=== PATIENT | female | born 1940 | race Caucasian/White ===

== ENCOUNTER 2025-08-16 10:46 | Outpatient (CLI) | payer MEDICARE, SELFPAY ==
--- OUTSIDE RECORDS SUMMARY | 2025-08-16 11:19 | XMS_ITS | Clinical Summary ---
Author Organization [facility] Address [address] [place] [address] Phone Care Team Providers Care Plant Associate Name Role Phone Tex Duarte MD Primary Care Provider [phone] Allergies No known active allergies Medications Fexofenadine HCl (MIKAYLA PO) Take by mouth daily. Active LEVOTHYROXINE SODIUM PO Take 150 mcg by mouth daily. Two on Sundays, one every other day of the week Active folic acid (FOLVITE) 1 MG Tablet Take 1 mg by mouth daily. Active LOSARTAN POTASSIUM-HCTZ PO Take by mouth daily. Active celecoxib (CeleBREX) 100 MG Capsule Take 100 mg by mouth daily. Active PANTOPRAZOLE SODIUM PO Take 30 mg by mouth daily. Active VENLAFAXINE HCL PO Take by mouth daily. Active Multiple Vitamins-Mineral s (CENTRUM SILVER PO) Take by mouth daily. Active METHOTREXATE PO Take by mouth once a week. Active ASPIRIN PO Take 81 mg by mouth daily. Active VITAMIN D PO Take by mouth daily. Active oxybutynin (DITROPAN-XL) 10 MG TABLET SR 24 HR Take 10 mg by mouth daily. Active atorvastatin (LIPITOR) 10 MG Tablet Take 10 mg by mouth daily. Active AMLODIPINE BESYLATE PO Take 2.5 mg by mouth daily. Active TIZANIDINE HCL PO Take 6 mg by mouth daily. Active Mirabegron ER (Myrbetriq) 50 MG TABLET SR 24 HR Take by mouth daily. Active TRAMADOL HCL PO Take by mouth 2 times daily. Twice daily and PRN Active Active Problems Problem Noted Date Diagnosed Date Urge urinary incontinence 05/26/2025 Hypothyroidism due to acquired atrophy of thyroi d 05/26/2025 Hypertension, essential 05/26/2025 Mixed hyperlipidemia 05/26/2025 Gastroesophageal reflux disease without esophagi tis 05/26/2025 Chronic midline low back pain without sciatica 1 MCTD (mixed connective tissue disease) Arthritis Encounters Date Type Department Care Team Description 05/26/2025 3:15 PM CDT Office Visit [facility] [id number] [place] [address] Tex Duarte MD URI, acute (Primary Dx); Hypertension, essential; Mixed hyperlipidemia; Hypothyroidism due to acquired atrophy of thyroid; Urge urinary incontinence; Arthritis; Gastroesophageal reflux disease without esophagitis; MCTD (mixed connective tissue disease) Discharge Disposition: Discharged to home or Selfcare 05/26/2025 Travel 05/26/2025 Nurse Triage [facility] [address] [place] [id number] Provider, None Appointment; Cough; Sore Throat from Last 3 Months Social History Tobacco Use Types Packs/Day Years Used Date Smoking Tobacco: Never Smokeless Tobacco: Never Tobacco Cessation:Counseling Given: No Alcohol Use Standard Drinks/Week Comments Not Currently 0 (1 standard drink = 0.6 oz pur e alcohol) PHQ-2 Answer Date Recorded Total Score - Questions 1-9 0 09/2024 Comments No Sex and Gender Information Value Date Recorded Sex Assigned at Not on file Legal Sex Female 10:03 AM CDT Gender Identity Not on file Sexual Orientation Not on file Last Filed Vital Signs Vital Sign Reading Time Taken Comments Blood Pressure 128/70 05/26/2025 3:27 PM CDT Pulse 106 05/26/2025 3:27 PM CDT Temperature 36.4 C (97.5 F) 05/26/2025 3:27 PM CDT Respiratory Rate 12 05/26/2025 3:27 PM CDT Oxygen Saturation 97% 05/26/2025 3:27 PM CDT Inhaled Oxygen Concentration - - Weight 88.9 kg (196 lb) 05/26/2025 3:27 PM CDT Height - - Body Mass Index - - Plan of Treatment Health Maintenance Due Date Last Done Comments DEXA Bone Density 1940 Hepatitis C Virus (HCV) Screening 1940 TdaP Immunization 1940 SARS-COV-2 Immunization (#1) 01/12/1944 Zoster Immunization (1 of 2) 1958 Pneumococcal Immunization (5 0+ years) (1 of 1 - PCV) 1989 Respiratory Syncytial Virus (RSV) Immunization (Adult) (1 - 1-dose 75+ series) 2014 Welcome to Medicare (IPPE) G0402 08/25/2024 Influenza Immunization (#1) 2025 Hepatitis B Immunization Aged Out No longer eligible based on patient's age to complete this topic Human Papillomavirus (HPV) Immunization Aged Out No longer eligible b ased on patient's age to complete this topic Meningococcal Immunization (ACWY) Aged Out No longer eligible based on patient's age to complete this topic Rotavirus Immunization Aged Out No lo nger eligible based on patient's age to complete this topic Procedures Procedure Name Priority Date/Time Associated Diagnosis Comments POC SARS-COV-2 BY MOLECULAR Routine 05/26/2025 4:00 PM CDT URI, acute POC GROUP A STREP BY MOLECULAR Routine 05/26/2025 4:00 PM CDT URI, acute from Last 3 Months Results * POC SARS-COV-2 BY MOLECULAR (05/26/2025 4:00 PM CDT) SARSCOV2 Negative Negative, INVALID PROCEDURE CONTROL Valid 05/26/2025 4:00 PM CDT us Tex Duarte MD POINT OF CARE TESTING ([facility] CAL[facility]) Final Result * POC GROUP A STREP BY MOLECULAR (05/26/2025 4:00 PM CDT) STREP A DNA Negative Negative, Invalid PROCEDURE CONTROL Valid 05/26/2025 4:00 PM CDT us Tex Duarte MD POINT OF CARE TESTING ([facility] CALLE) Final Result from Last 3 Months Insurance MEDICARE C [employer] Advance Directives Documents on File Type Date Recorded Patient Mortgage Branch Manager Expl anation Power of Mysql Database Administrator for Health Care 06/01/2025 5:27 AM POA-, 12/17/2023 Care Teams Plant Associate Relationship Specialty Start Date End Date Tex Duarte MD [address] [place] [address] PCP - General Internal Medicine 05/26/25
== END 2025-08-16 10:47 | disposition home or self-care (01) ==
LOC: ANHAUDIO 10:47
PROVIDERS: Visit Provider Otolaryngology
DX: H93.19 Tinnitus, unspecified ear (principal); R42 Dizziness and giddiness; Z97.4 Presence of external hearing-aid; H90.3 Sensorineural hearing loss, bilateral; H74.8X3 Other specified disorders of middle ear and mastoid, bilateral; Z82.2 Family history of deafness and hearing loss
CPT/HCPCS: 92557; 92567